=== PATIENT | male | born 1955 | race Caucasian/White ===

== ENCOUNTER 2018-10-19 08:49 | Inpatient (IN) | payer OTHER ==
[~2018-10-19] VITALS: Ht 177.8 cm; Wt 82.0 kg
[~2018-10-19 08:49] MED LIST: IBUP600 PO
[2018-10-19 09:24] LABS: BASOPHILS ABSOLUTE AUTO 0.06 K/mm3 (0.00-0.23); BASOPHILS PERCENT AUTO 1 % (0-2); EOSINOPHILS ABSOLUTE AUTO 0.22 K/mm3 (0.00-0.68); EOSINOPHILS PERCENT AUTO 2 % (0-6); Hematocrit 47.1 % (37.0-53.0); Hemoglobin 16.1 g/dL (13.5-17.5); IMMATURE GRAN ABSOLUTE AUTO 0.03 K/mm3 (0.00-0.10); IMMATURE GRAN PERCENT AUTO 0 % (0-1); LYMPHOCYTES ABSOLUTE AUTO 2.77 K/mm3 (0.84-5.20); LYMPHOCYTES PERCENT AUTO 24 % (21-46); MONOCYTES ABSOLUTE AUTO 0.82 K/mm3 (0.16-1.47); MONOCYTES PERCENT AUTO 7 % (4-13); Mean Corpuscular HGB 32.5 pg (26.0-34.0); Mean Corpuscular HGB Conc 34.2 g/dL (31.5-36.5); Mean Corpuscular Volume 95 fL (80-100); Mean Platelet Volume 10.4 fL (9.1-12.4); NEUTROPHILS ABSOLUTE AUTO 7.52 K/mm3 (1.96-9.15); NEUTROPHILS PERCENT AUTO 66 % (41-73); Platelet Count 255 K/mm3 (150-400); RDW Coefficient Variation 13.4 % (11.7-14.2); RDW Standard Deviation 46.9 fL (35.1-46.3); Red Blood Cell Count 4.96 M/mm3 (4.30-5.90); White Blood Cell Count 11.42 K/mm3 (4.00-11.30)
[2018-10-19 10:00] LABS: Alanine Aminotransfer (ALT/SGP 30 U/L (12-78); Albumin, Blood 4.3 g/dL (3.4-5.0); Albumin/Globulin Ratio 1.1 (0.8-1.8); Alk Phos 86 U/L (50-136); Anion Gap 9 mmol/L (6-16); Aspartate Aminotrans (AST/SGOT 74 U/L (12-37); Bilirubin, Total 0.5 mg/dL (0.1-1.0); Blood Urea Nitrogen 9 mg/dL (8-24); Bun/Creatinine Ratio 9.5 (12.0-20.0); CO2, Blood 24 mmol/L (21-32); Calcium, Blood 9.3 mg/dL (8.5-10.1); Chloride, Blood 108 mmol/L (98-108); Creatinine, Blood 0.95 mg/dL (0.60-1.20); Glomerular Filtration Rate >60 (60-); Glucose, Blood 111 mg/dL (70-99); Potassium, Blood 4.2 mmol/L (3.5-5.5); Sodium, Blood 141 mmol/L (136-145); Total Protein, Blood 8.3 g/dL (6.4-8.2)
[2018-10-19 10:53] LABS: International Normalized Ratio 0.96; Prothrombin Time Results 10.2 Sec (9.7-11.5)
[2018-10-19 17:34] LABS: Creatine Kinase MB 91.1 ng/mL (0.0-3.6)
[2018-10-19 17:41] LABS: Troponin I 15.3 ng/mL (0.000-0.040)
[2018-10-20 00:56] LABS: BASOPHILS ABSOLUTE AUTO 0.07 K/mm3 (0.00-0.23); BASOPHILS PERCENT AUTO 1 % (0-2); EOSINOPHILS ABSOLUTE AUTO 0.24 K/mm3 (0.00-0.68); EOSINOPHILS PERCENT AUTO 2 % (0-6); Hematocrit 41.2 % (37.0-53.0); Hemoglobin 13.8 g/dL (13.5-17.5); IMMATURE GRAN ABSOLUTE AUTO 0.03 K/mm3 (0.00-0.10); IMMATURE GRAN PERCENT AUTO 0 % (0-1); LYMPHOCYTES ABSOLUTE AUTO 3.61 K/mm3 (0.84-5.20); LYMPHOCYTES PERCENT AUTO 35 % (21-46); MONOCYTES ABSOLUTE AUTO 1.03 K/mm3 (0.16-1.47); MONOCYTES PERCENT AUTO 10 % (4-13); Mean Corpuscular HGB 31.9 pg (26.0-34.0); Mean Corpuscular HGB Conc 33.5 g/dL (31.5-36.5); Mean Corpuscular Volume 95 fL (80-100); Mean Platelet Volume 10.4 fL (9.1-12.4); NEUTROPHILS ABSOLUTE AUTO 5.44 K/mm3 (1.96-9.15); NEUTROPHILS PERCENT AUTO 52 % (41-73); Platelet Count 220 K/mm3 (150-400); RDW Coefficient Variation 13.7 % (11.7-14.2); RDW Standard Deviation 48.5 fL (35.1-46.3); Red Blood Cell Count 4.32 M/mm3 (4.30-5.90); White Blood Cell Count 10.42 K/mm3 (4.00-11.30)
[2018-10-20 01:15] LABS: Alanine Aminotransfer (ALT/SGP 34 U/L (12-78); Albumin, Blood 3.4 g/dL (3.4-5.0); Alk Phos 66 U/L (50-136); Anion Gap 7 mmol/L (6-16); Aspartate Aminotrans (AST/SGOT 83 U/L (12-37); Bilirubin, Total 0.3 mg/dL (0.1-1.0); Blood Urea Nitrogen 17 mg/dL (8-24); Bun/Creatinine Ratio 15.9 (12.0-20.0); CHOL/HDL RATIO 5.3; CO2, Blood 27 mmol/L (21-32); Calcium, Blood 8.5 mg/dL (8.5-10.1); Chloride, Blood 106 mmol/L (98-108); Cholesterol 203 mg/dL (50-200); Creatinine, Blood 1.07 mg/dL (0.60-1.20); Globulin, Blood 3.4 g/dL (2.2-4.0); Glomerular Filtration Rate >60 (60-); Glucose, Blood 106 mg/dL (70-99); HDL Cholesterol 38 mg/dL (>39); LDL/HDL RATIO 3.6; Low Density Lipoprotein Chol 138 mg/dL (0-110); Magnesium, Blood 2.2 mg/dL (1.6-2.4); Phosphorus, Blood 5.1 mg/dL (2.5-4.9); Sodium, Blood 140 mmol/L (136-145); Total Protein, Blood 6.8 g/dL (6.4-8.2); Triglycerides 133 mg/dL (30-160); Very Low Density Lipoprot Chol 26 mg/dL (6-32)
[2018-10-20 01:19] LABS: Creatine Kinase MB 51.4 ng/mL (0.0-3.6); Creatine Kinase MB Index 8.3 (0.0-4.0)
[2018-10-20 01:33] LABS: Troponin I 17.7 ng/mL (0.000-0.040)
[2018-10-21 03:34] LABS: BASOPHILS ABSOLUTE AUTO 0.05 K/mm3 (0.00-0.23); BASOPHILS PERCENT AUTO 1 % (0-2); EOSINOPHILS ABSOLUTE AUTO 0.25 K/mm3 (0.00-0.68); EOSINOPHILS PERCENT AUTO 3 % (0-6); Hematocrit 40.3 % (37.0-53.0); Hemoglobin 13.3 g/dL (13.5-17.5); IMMATURE GRAN ABSOLUTE AUTO 0.02 K/mm3 (0.00-0.10); IMMATURE GRAN PERCENT AUTO 0 % (0-1); LYMPHOCYTES ABSOLUTE AUTO 2.89 K/mm3 (0.84-5.20); LYMPHOCYTES PERCENT AUTO 34 % (21-46); MONOCYTES ABSOLUTE AUTO 0.94 K/mm3 (0.16-1.47); MONOCYTES PERCENT AUTO 11 % (4-13); Mean Corpuscular HGB 32.3 pg (26.0-34.0); Mean Platelet Volume 10.3 fL (9.1-12.4); NEUTROPHILS ABSOLUTE AUTO 4.27 K/mm3 (1.96-9.15); NEUTROPHILS PERCENT AUTO 51 % (41-73); Platelet Count 209 K/mm3 (150-400); RDW Coefficient Variation 13.7 % (11.7-14.2); RDW Standard Deviation 50.1 fL (35.1-46.3); Red Blood Cell Count 4.12 M/mm3 (4.30-5.90); White Blood Cell Count 8.42 K/mm3 (4.00-11.30)
[2018-10-21 03:40] LABS: Mean Corpuscular Volume 98 fL (80-100)
[2018-10-21 03:54] LABS: Alanine Aminotransfer (ALT/SGP 23 U/L (12-78); Albumin, Blood 3.3 g/dL (3.4-5.0); Alk Phos 60 U/L (50-136); Anion Gap 6 mmol/L (6-16); Aspartate Aminotrans (AST/SGOT 36 U/L (12-37); Bilirubin, Total 0.4 mg/dL (0.1-1.0); Blood Urea Nitrogen 13 mg/dL (8-24); Bun/Creatinine Ratio 14.5 (12.0-20.0); CO2, Blood 26 mmol/L (21-32); Calcium, Blood 8.6 mg/dL (8.5-10.1); Chloride, Blood 108 mmol/L (98-108); Globulin, Blood 3.4 g/dL (2.2-4.0); Glomerular Filtration Rate >60 (60-); Glucose, Blood 98 mg/dL (70-99); Potassium, Blood 4.5 mmol/L (3.5-5.5); Sodium, Blood 140 mmol/L (136-145); Total Protein, Blood 6.7 g/dL (6.4-8.2)
[2018-10-21] MEDS ORDERED: ASPI325 PO (14:40)
[2018-10-21] MEDS ORDERED: Lopressor 25 mg25 MG PO (14:46)
[2018-10-21] MEDS ORDERED: CLOP75 PO (14:46)
[2018-10-21] MEDS ORDERED: ATORVASTATIN CA80 MG PO (14:46)
== END 2018-10-21 15:14 | disposition home or self-care (01) | DRG 247 ==
LOC: ER 08:49 → PCU 10:36
PROVIDERS: Emergency Medicine; Internal Medicine Clinical Cardiac Electrophysiology; ADMIT Internal Medicine
PROC: 027034Z Dilation of Coronary Artery, One Artery with Drug-eluting Intraluminal Device, Percutaneous Approach (ICD-10-PCS; principal; 2018-10-20)
PROC: B2111ZZ Fluoroscopy of Multiple Coronary Arteries using Low Osmolar Contrast (ICD-10-PCS; 2018-10-20)
DX: I21.4 Non-ST elevation (NSTEMI) myocardial infarction (principal); I16.1 Hypertensive emergency; E78.5 Hyperlipidemia, unspecified; I73.9 Peripheral vascular disease, unspecified; F17.210 Nicotine dependence, cigarettes, uncomplicated; J43.9 Emphysema, unspecified; I25.10 Atherosclerotic heart disease of native coronary artery without angina pectoris; I10 Essential (primary) hypertension; Z79.82 Long term (current) use of aspirin
CPT/HCPCS: 36415; 71275; 74175; 80053; 80061; 82550; 82553; 83036; 83735; 84100; 84484; 85025; 85347; 85610; 85730; 93005; 93010; 93306; 93454; 96365-59; 96366-59; 96375-59; 99152; 99153; 99285-25; A9270; C1725; C1769; C1874; C1887; C1894; C9600; J0461; J1200; J1644; J1650; J2250; J3010; J7030; J7040; Q9967

== ENCOUNTER 2023-02-25 07:04 | Observation (INO) | payer OTHER, MEDICARE ==
[~2023-02-25] VITALS: Ht 180.3 cm; Wt 85.2 kg
[~2023-02-25 07:04] MED LIST changes: +ASPI325 PO; +ATORVASTATIN CA80 MG PO; +CLOP75 PO; +Lopressor 25 mg25 MG PO
[2023-02-25 07:37] LABS: BASOPHILS ABSOLUTE AUTO 0.05 K/mm3 (0.00-0.23); BASOPHILS PERCENT AUTO 1 % (0-2); EOSINOPHILS ABSOLUTE AUTO 0.31 K/mm3 (0.00-0.68); EOSINOPHILS PERCENT AUTO 3 % (0-6); Hematocrit 41.4 % (37.0-53.0); Hemoglobin 14.2 g/dL (13.5-17.5); IMMATURE GRAN ABSOLUTE AUTO 0.03 K/mm3 (0.00-0.10); IMMATURE GRAN PERCENT AUTO 0 % (0-1); LYMPHOCYTES ABSOLUTE AUTO 2.86 K/mm3 (0.84-5.20); LYMPHOCYTES PERCENT AUTO 28 % (21-46); MONOCYTES ABSOLUTE AUTO 0.87 K/mm3 (0.16-1.47); MONOCYTES PERCENT AUTO 8 % (4-13); Mean Corpuscular HGB 31.7 pg (26.0-34.0); Mean Corpuscular HGB Conc 34.3 g/dL (31.5-36.5); Mean Corpuscular Volume 92 fL (80-100); Mean Platelet Volume 10.2 fL (9.1-12.4); NEUTROPHILS ABSOLUTE AUTO 6.28 K/mm3 (1.96-9.15); NEUTROPHILS PERCENT AUTO 60 % (41-73); Platelet Count 228 K/mm3 (150-400); RDW Coefficient Variation 13.6 % (11.7-14.2); RDW Standard Deviation 46.3 fL (35.1-46.3); Red Blood Cell Count 4.48 M/mm3 (4.30-5.90)
[2023-02-25 08:00] LABS: Albumin, Blood 3.7 g/dL (3.4-5.0); Albumin/Globulin Ratio 1.1 (0.8-1.8); Bilirubin, Total 0.2 mg/dL (0.1-1.0); Calcium, Blood 8.5 mg/dL (8.5-10.1); Creatinine, Blood 1.16 mg/dL (0.60-1.20); Globulin, Blood 3.4 g/dL (2.2-4.0); Total Protein, Blood 7.1 g/dL (6.4-8.2)
[2023-02-25 12:35] VITALS: BP 152/84
--- NOTE | 2023-02-25 13:30 | NUR ---
ADMIT SUMMARY: PT ADMITTED TO ROOM 327 AT 1225. PT CAME BY WHEELCHAIR, A/O X 4, IND TO BED. PT DENIES DIZZINESS, SOB, CP/PRESSURE ON ADMIT. PT SLIGHTLY [place]. PT REPORTS HE ONLY TAKES METOPROLOL AND DOES NOT TAKE ATORVASTATIN DUE TO IT CAUSING LEG CRAMPS AND HE NO LONGER TAKES PLAVIX. MEDICATION RECONCILIATION COMPLETED. PT NPO EXCEPT WATER UNTIL I HEAR WHEN STRESS TEST TO BE PERFORMED. PT AGREEABLE. MRI SCREENING FORM FILLED OUT WITH PT. DURING ASSESSMENT PT REPORTED HIS LEFT LEG WILL SWELL UP OCCASIONALLY WHEN HE WORKS ALL DAY ON HIS FEET AND IT RESOLVES WITH REST. PT HAD NO OTHER CONCERNS. WATER PROVIDED. PT ORIENTED TO CALL LIGHT AND ADVISED TO CALL IF DIZZINESS OR CHEST PAIN RETURNS. TELE PLACED AND IN NSR AT 67.
[2023-02-25 15:12] VITALS: BP 151/92
--- NOTE | 2023-02-25 16:54 | NUR ---
STRESS TEST PATIENT WILL BE NPO BY MIDNIGHT AND NO CAFFEINE AFTER 1900 TONIGHT. STRESS TEST SCHEDULED TO START TOMORROW AT 0830 02/26/23. RESTING TEST STARTING AT 0830 AND SCAN AT 0930. STRESS TEST STARTING AT 1330 AND SCAN AT 1530.
--- NOTE | 2023-02-25 19:13 | NUR ---
SHIFT SUMMARY RECEIVED REPORT AND ASSUMED CARE FROM MELIZA SHANKS AT 1400. PATIENT A&OX4, COOPERATIVE WITH CARE, INDEPENDENT IN ROOM. C/O HEADACHE PAIN AND MEDICATED WITH TYLENOL. RECEIVED A CXR AND HEAD MRI TODAY. TELE SHOWING NSR IN THE 'S. NO ACUTE EVENTS THIS SHIFT. CURRENTLY SLEEPIN IN BED WITH CALL LIGHT IN REACH.
[2023-02-25 19:30] VITALS: BP 120/66
[2023-02-26 04:51] VITALS: BP 132/86
[2023-02-26 05:51] LABS: Hematocrit 42.4 % (37.0-53.0); Hemoglobin 14.3 g/dL (13.5-17.5); Mean Corpuscular HGB Conc 33.7 g/dL (31.5-36.5); Mean Corpuscular Volume 95 fL (80-100); Mean Platelet Volume 10.1 fL (9.1-12.4); Platelet Count 210 K/mm3 (150-400); RDW Coefficient Variation 13.7 % (11.7-14.2); RDW Standard Deviation 48.4 fL (35.1-46.3); Red Blood Cell Count 4.47 M/mm3 (4.30-5.90)
--- NOTE | 2023-02-26 06:12 | NUR ---
Shift Summary Pt states no chest pain, pressure or discomfort t/o the night. He did wake up with a headache this morning. He has been NPO since 0000 in anticipation of a stress test today at 0800. AOx4, independent in room.
[2023-02-26 06:20] LABS: Bun/Creatinine Ratio 24.1 (12.0-20.0); C-Reactive Protein, High Sens. 2.85 mg/L (0.000-3.000); Calcium, Blood 8.9 mg/dL (8.5-10.1); Creatinine, Blood 0.87 mg/dL (0.60-1.20); Potassium, Blood 4.4 mmol/L (3.5-5.5)
[2023-02-26 07:27] VITALS: BP 127/83
[2023-02-26] MEDS ORDERED: CYCL10 PO (13:32)
--- NOTE | 2023-02-26 18:23 | NUR ---
DAYSHIFT SUMMARY Patient alert & oriented x4, no acute changes to patient status. 1 day stress test complete, result spending. Will remain in hospital overnight, will read results in AM.
[2023-02-26 20:33] VITALS: BP 132/85
[2023-02-27 03:27] VITALS: BP 116/77
--- NOTE | 2023-02-27 05:21 | NUR ---
SHIFT SUMMARY SOPHY WAS ALERT AND FULLY ORIENTED AT THE START OF SHIFT AND COOPERATIVE WITH CARE. PT DENYIING C/P/PRESSURE AND SOB AT THIS TIME. CURRENTLY THIS PT IS AWAITING THE RESULTS OF YESTERDAYS STRESS TEST AND IS LOOKING FORWARD TO GOING HOME. NO ACUTE EVENTS THIS SHIFT. PT IS RESTING IN BED AT A LOW POSITION WITH THE CALL LIGHT IN REACH.
[2023-02-27] MEDS ORDERED: Aspir 8181 MG PO (09:57)
[2023-02-27] MEDS ORDERED: NICO2 PO (09:58)
--- NOTE | 2023-02-27 13:27 | NUR ---
PT DISCHARGED THE PT VERBALIZED UNDERSTANDING OF THE DC INSTRUCTIONS. THE PTS PRESCRIPTIONS WERE FAXED TO [facility]. THE PT WAS REMINDED TO ESTABLISH A POST HOSPITAL REVIEW APPOINMENT WITH HIS PCP. THE WAS TRANSFERED VIA WHEELCHAIR ACCOMPANIED BY THE POSTMASTER AND HIS FRIEND.
== END 2023-02-27 10:29 | disposition home or self-care (01) ==
LOC: ER 07:04 → MEDS 07:05 → ENPENDDIS 02-27 09:03 → MEDS 02-27 10:29
PROVIDERS: Emergency Medicine; ADMIT Internal Medicine
DX: I25.118 Atherosclerotic heart disease of native coronary artery with other forms of angina pectoris (principal); M19.91 Primary osteoarthritis, unspecified site; E78.5 Hyperlipidemia, unspecified; I73.9 Peripheral vascular disease, unspecified; F17.210 Nicotine dependence, cigarettes, uncomplicated; R51.9 Headache, unspecified; I21.4 Non-ST elevation (NSTEMI) myocardial infarction; H83.09 Labyrinthitis, unspecified ear; Z95.5 Presence of coronary angioplasty implant and graft; Z79.899 Other long term (current) drug therapy
CPT/HCPCS: 36415; 70553; 71045; 78452; 80048; 80053; 84484; 85025; 85027; 85651; 86141; 93005; 93010; 93017; 99285-25; A9270; A9500; A9579; G0378; J0280; J2785